=== PATIENT | male | born 1955 | race Caucasian/White ===

== ENCOUNTER → 2018-06-21 | Outpatient (CLI) | payer OTHER ==
[~2018-06-21] MED LIST: ALBU8.5H8 INH; ASPI-496 PO; CHOL10003 PO; DICL75TA3 PO; IPRA3AMP30 INH; lidocaine TD
[2018-06-21 10:30] LABS: MICROSCOPIC NOT IND
== END | disposition home or self-care (01) ==
LOC: STAR 09:25
PROVIDERS: ATTEND Urology
DX: Z01.818 Encounter for other preprocedural examination (principal); N20.0 Calculus of kidney
CPT/HCPCS: 81003; 87086; 93005

== ENCOUNTER 2018-07-18 07:28 | Day surgery (SDC) | payer OTHER ==
[~2018-07-18] VITALS: Ht 177.8 cm; Wt 84.8 kg
[2018-07-18] MEDS ORDERED: LACTATED RINGERS 1,000 ML IV SCH (08:13)
[2018-07-18 08:14] VITALS: BP 145/95
[2018-07-18] MEDS ORDERED: MIDAZOLAM 1 MG/ML, 2ML ONE (08:33)
[2018-07-18] MEDS ORDERED: FENTANYL PF 100 MCG/2ML ONE (08:33)
[2018-07-18] MEDS ORDERED: PROPOFOL 10 MG/ML, 20ML ONE (09:37)
[2018-07-18] MEDS ORDERED: ROCURONIUM 10 MG/ML,10ML ONE (09:37)
[2018-07-18] MEDS ORDERED: SUCCINYLCHOLINE 20 MG/ML, 10ML ONE (09:37)
[2018-07-18] MEDS ORDERED: ONDANSETRON 2MG/ML, 2ML IVPush PRN (10:30)
[2018-07-18] MEDS ORDERED: OXYcodone 5 MG/5 ML ORAL.SOL UDC PO PRN (10:30)
[2018-07-18] MEDS ORDERED: hydrALAzine 20 MG/ML, 1ML IV PRN (10:30)
[2018-07-18] MEDS ORDERED: HYDROmorphone 1 MG/ML, 1ML IV PRN (10:30)
[2018-07-18] MEDS ORDERED: KETOROLAC 30 MG/1 ML IV PRN (10:30)
[2018-07-18] MEDS ORDERED: LABETALOL 5MG/ML, 20ML IV PRN (10:30)
[2018-07-18] MEDS ORDERED: ALBUTEROL SULFATE 2.5 MG/3 ML NPPB PRN (10:30)
[2018-07-18] MEDS ORDERED: FENTANYL PF 100 MCG/2ML IV PRN (10:30)
[2018-07-18] MEDS ORDERED: METOCLOPRAMIDE 5 MG/ML, 2ML IV PRN (10:30)
[2018-07-18] MEDS ORDERED: PROMETHAZINE 25 MG/ML, 1ML IV PRN (10:30)
[2018-07-18] MEDS ORDERED: MEPERIDINE/PF 25MG/0.5ML IVPush PRN (10:30)
== END 2018-07-18 13:15 | disposition home or self-care (01) ==
LOC: OUT 07:28
PROVIDERS: ATTEND Urology
DX: N20.0 Calculus of kidney (principal); J44.9 Chronic obstructive pulmonary disease, unspecified
CPT/HCPCS: 50590; J0330; J2250; J2704; J3010; J7120